=== PATIENT | male | born 1980 | race African-American/Black ===

== ENCOUNTER 2018-10-26 17:11 | Emergency (ER) | payer OTHER ==
[~2018-10-26] VITALS: Ht 167.6 cm; Wt 81.8 kg
[2018-10-26] MEDS ORDERED: ADACEL/BOOSTRIX VACCINE (DIPHTH/PERTUSS/ACELL/TETANUS)0.5ML SYR (90715) IM ONE (17:30)
[2018-10-26] MEDS ORDERED: LIDOCAINE 2% MDV 20 ML VIAL SC ONE (17:45)
[2018-10-26] MEDS ORDERED: AUGM875T28 PO (18:28)
--- NOTE | 2018-10-26 18:38 | REP ---
Clinical: Fall . Comparison: None . Findings: The ventricles, sulci, and cisterns are normal in position and appearance. Uribe-white differentiation is maintained. No acute intracranial hemorrhage, mass/mass effect, pathology or trauma/injury. No evidence for acute infarction. No extra-axial fluid collection. Calvarium is intact. Paranasal sinuses and mastoid air cells are clear. Impression: Normal noncontrast head CT. No evidence for acute intracranial pathology or trauma/injury. Electronically Signed by Austen Louis MD 10/26/2018 06:29 P
[2018-10-26 19:07] VITALS: BP 134/74
== END 2018-10-26 19:32 | disposition home or self-care (01) ==
LOC: M ED 17:11
DX: S01.81XA Laceration without foreign body of other part of head, initial encounter (principal); W26.0XXA Contact with knife, initial encounter; Y92.098 Other place in other non-institutional residence as the place of occurrence of the external cause; F17.210 Nicotine dependence, cigarettes, uncomplicated